=== PATIENT | female | born 1995 | race Two or more races ===

== ENCOUNTER 2022-08-07 17:35 | Observation (INO) | payer MEDICAID, OTHER ==
[2022-08-07 19:45] LABS: Basophils # (auto) 0 10 ^3/uL (0-0.2); Basophils % (auto) 0.3 % (0.0-2.0); Eosinophils # (auto) 0 10 ^3/uL (0-0.8); Eosinophils % (auto) 0.3 % (0.0-7.0); Hematocrit 37.7 % (36.0-46.0); Hemoglobin 13.1 g/dL (12.2-16.2); Lymphocytes # (auto) 2.7 10 ^3/uL (0.4-5.4); Mean Corpuscular Hemoglobin 31.9 pg (28.0-32.0); Mean Corpuscular Hgb Conc. 34.6 g/dL (32.0-36.0); Mean Corpuscular Volume 92.3 fL (80.0-100.0); Monocytes # (auto) 0.7 10 ^3/uL (0-1.3); Monocytes % (auto) 7.8 % (0.0-12.0); Neutrophils # (auto) 5.3 10 ^3/uL (1.6-8.6); Neutrophils % (auto) 60.6 % (37.0-80.0); Nucleated Red Blood Cells % 0.1 %; Red Blood Cells 4.09 10^6/uL (4.0-5.20); Red Cell Distribution Width 13.9 % (11.8-14.3); White Blood Cell 8.8 10^3/uL (4.4-10.8)
[2022-08-07] MEDS ORDERED: URSO300C9 PO (19:57)
[2022-08-07] MEDS ORDERED: PREN-94 PO (19:57)
[2022-08-07 19:58] LABS: Albumin 2.6 g/dL (3.4-5.0); BUN/Creatinine Ratio 14.5 (10.0-20.0); Calcium 8.9 mg/dL (8.5-10.1); Potassium 3.6 mmol/L (3.5-5.1)
[2022-08-07 20:00] LABS: Bilirubin, Total 0.6 mg/dL (0.2-1.0); Total Protein 6.3 g/dL (6.4-8.2)
== END 2022-08-07 20:40 | disposition home or self-care (01) ==
LOC: LDRP 17:35
PROVIDERS: ADMIT Obstetrics & Gynecology; ATTEND Obstetrics & Gynecology
DX: O99.891 Other specified diseases and conditions complicating pregnancy (principal); N13.30 Unspecified hydronephrosis; O26.893 Other specified pregnancy related conditions, third trimester; L29.9 Pruritus, unspecified; Z3A.34 34 weeks gestation of pregnancy; Z88.0 Allergy status to penicillin
CPT/HCPCS: 36415; 59025; 76818; 80053; 81002; 85025; 94760; G0378

== ENCOUNTER 2022-08-09 08:46 | Observation (INO) | payer MEDICAID ==
[~2022-08-09 08:46] MED LIST: PREN-94 PO; URSO300C9 PO
== END 2022-08-09 10:35 | disposition home or self-care (01) ==
LOC: LDRP 08:46 → UNDOADMOB 08:46 → LDRP 08:48 → UNDODISOB 10:35
PROVIDERS: ADMIT Obstetrics & Gynecology; ATTEND Obstetrics & Gynecology
DX: O26.613 Liver and biliary tract disorders in pregnancy, third trimester (principal); O26.62 Liver and biliary tract disorders in childbirth; K83.1 Obstruction of bile duct; O99.891 Other specified diseases and conditions complicating pregnancy; N13.30 Unspecified hydronephrosis; O26.893 Other specified pregnancy related conditions, third trimester; R42 Dizziness and giddiness; Z3A.34 34 weeks gestation of pregnancy
CPT/HCPCS: 59025; 76818; 81002; 94760; G0378; 59409

== ENCOUNTER 2022-08-12 10:07 | Observation (INO) | payer BC, MEDICAID ==
[2022-08-16] MEDS ORDERED: PREN-96 PO (08:34)
== END 2022-08-16 10:10 | disposition home or self-care (01) ==
LOC: UNDOADMOB 08-16 08:06 → LDRP 08-16 08:06 → UNDODISOB 08-16 10:10
PROVIDERS: ADMIT Obstetrics & Gynecology; ATTEND Obstetrics & Gynecology
DX: O26.613 Liver and biliary tract disorders in pregnancy, third trimester (principal); K83.1 Obstruction of bile duct; O99.891 Other specified diseases and conditions complicating pregnancy; N13.30 Unspecified hydronephrosis; O62.9 Abnormality of forces of labor, unspecified; Z3A.36 36 weeks gestation of pregnancy
CPT/HCPCS: 59025; 76818; 81002; 94760; G0378

== ENCOUNTER 2022-08-23 08:00 | Observation (INO) | payer MEDICAID ==
[~2022-08-23 08:00] MED LIST changes: +PREN-96 PO
== END 2022-08-23 10:06 | disposition home or self-care (01) ==
LOC: LDRP 08:00 → UNDOADMOB 08:00 → LDRP 08:12 → UNDODISOB 10:06
PROVIDERS: ADMIT Obstetrics & Gynecology; ATTEND Obstetrics & Gynecology
DX: O26.613 Liver and biliary tract disorders in pregnancy, third trimester (principal); K83.1 Obstruction of bile duct; Z3A.37 37 weeks gestation of pregnancy; Z88.0 Allergy status to penicillin
CPT/HCPCS: 59025; 76818; 81002; G0378

== ENCOUNTER 2022-08-27 10:02 | Observation (INO) | payer MEDICAID ==
[~2022-08-27] VITALS: Ht 160 cm; Wt 90.7 kg
== END 2022-08-27 11:38 | disposition home or self-care (01) ==
LOC: UNDOADMOB 10:02 → LDRP 10:02 → UNDODISOB 11:38
PROVIDERS: ADMIT Obstetrics & Gynecology; ATTEND Obstetrics & Gynecology
DX: O26.613 Liver and biliary tract disorders in pregnancy, third trimester (principal); K83.1 Obstruction of bile duct; Z3A.37 37 weeks gestation of pregnancy
CPT/HCPCS: 59025; 76818; 81002; 94760; G0378

== ENCOUNTER 2022-08-31 08:15 | Inpatient (IN) | payer MEDICAID ==
[~2022-08-31] VITALS: Ht 160 cm; Wt 91.2 kg
[2022-08-31] MEDS ORDERED: LIDOCAINE 2%HCL (LOCAL ANESTH.) INJ 20ML MDV IJ PRN (08:45)
[2022-08-31] MEDS ORDERED: PHISODERM TOP SOLN 240ML BTL TOP PRN (08:45)
[2022-08-31] MEDS: LACTATED RINGER'S 1,000 ML IV SCH ×2 (09:31→16:36)
[2022-08-31] MEDS: miSOPROStol 50 MCG per PRE-CUT 1/2 TAB PO PRN ×3 (09:44→23:15)
[2022-08-31 10:25] LABS: Basophils # (auto) 0 10 ^3/uL (0-0.2); Basophils % (auto) 0.3 % (0.0-2.0); Eosinophils # (auto) 0 10 ^3/uL (0-0.8); Eosinophils % (auto) 0.2 % (0.0-7.0); Hematocrit 36.6 % (36.0-46.0); Hemoglobin 12.6 g/dL (12.2-16.2); Lymphocytes # (auto) 1.7 10 ^3/uL (0.4-5.4); Lymphocytes % (auto) 22.1 % (10.0-50.0); Mean Corpuscular Hemoglobin 32.3 pg (28.0-32.0); Mean Corpuscular Hgb Conc. 34.5 g/dL (32.0-36.0); Mean Corpuscular Volume 93.4 fL (80.0-100.0); Monocytes # (auto) 0.5 10 ^3/uL (0-1.3); Monocytes % (auto) 7.2 % (0.0-12.0); Neutrophils # (auto) 5.3 10 ^3/uL (1.6-8.6); Neutrophils % (auto) 70.2 % (37.0-80.0); Nucleated Red Blood Cells % 0.2 %; Red Blood Cells 3.91 10^6/uL (4.0-5.20); Red Cell Distribution Width 15.1 % (11.8-14.3); White Blood Cell 7.5 10^3/uL (4.4-10.8)
[2022-08-31 10:26] LABS: Urine Bacteria MANY /hpf (None Seen); Urine Blood Negative /uL (Negative); Urine Mucus FEW (None Seen); Urine Specific Gravity 1.015 (1.001-1.035); Urine WBC 5 /hpf (0 - 5)
[2022-08-31 10:31] LABS: Albumin 2.6 g/dL (3.4-5.0); Calcium 8.7 mg/dL (8.5-10.1); Potassium 3.6 mmol/L (3.5-5.1)
[2022-08-31 10:33] LABS: Alcohol, Urine < 3.0 mg/dL (0-10); Amphetamine Screen, Urine NEGATIVE (NEGATIVE); Barbiturate Scree,Urine NEGATIVE (NEGATIVE); Benzodiazephine Screen, Urine NEGATIVE (NEGATIVE); Cannabinoid Screen, Urine NEGATIVE (NEGATIVE); Cocaine Screen, Urine NEGATIVE (NEGATIVE); Opiate Scree,Urine NEGATIVE (NEGATIVE); Phencyclidine Screen, Urine NEGATIVE (NEGATIVE)
[2022-08-31 10:34] LABS: BUN/Creatinine Ratio 15.4 (10.0-20.0); Bilirubin, Total 0.6 mg/dL (0.2-1.0)
[2022-08-31 11:11] LABS: INR 0.87 (0.9-1.15); Partial Thromboplastin Time 25.9 sec (24.6-33.4)
[2022-08-31] MEDS: PROMETHAZINE HCL 25 MG/ML 1ML IV PRN (20:26)
[2022-08-31] MEDS: BUTORPHANOL TARTRATE 2 MG/1 ML VIAL IV PRN (20:27)
[2022-09-01] MEDS: LACTATED RINGER'S 1,000 ML IV SCH ×4 (00:05→23:17)
[2022-09-01] MEDS: PROMETHAZINE HCL 25 MG/ML 1ML IV PRN ×3 (00:58→18:30)
[2022-09-01] MEDS: BUTORPHANOL TARTRATE 2 MG/1 ML VIAL IV PRN ×2 (00:59→05:34)
[2022-09-01] MEDS: miSOPROStol 50 MCG per PRE-CUT 1/2 TAB PO PRN ×2 (04:05→07:58)
[2022-09-01] MEDS ORDERED: LACT. RINGERS/OXYTOCIN 20UNITS 500 ML IV ONE ×2 (06:45→07:15)
[2022-09-01] MEDS ORDERED: METHYLERGONOVINE MALEATE 0.2 MG/ML AMP IM ONE (06:45)
[2022-09-01 07:06] LABS: RPR Non Reactive (Non Reactive)
[2022-09-01] MEDS ORDERED: LIDOCAINE HCL 2 %PF INJ 10ML AMP IJ ONE (09:00)
[2022-09-01] MEDS ORDERED: NALOXONE HCL 0.4 MG/ML VIAL IV ONE ×2 (09:00→11:15)
[2022-09-01] MEDS ORDERED: ePHEDrine SULFATE 50 MG/ML AMP IV ONE ×2 (09:00→11:15)
[2022-09-01] MEDS ORDERED: fentaNYL CITRATE 100 MCG/2 ML VL IV ONE (09:00)
[2022-09-01] MEDS ORDERED: ROPIVACAINE HCL 200 ML EPI SCH ×2 (09:00→11:15)
[2022-09-01] MEDS ORDERED: SODIUM CHLORIDE 0.9% 500 ML IV PRN (11:15)
[2022-09-01] MEDS ORDERED: LACTATED RINGER'S 500 ML IV ONE (11:15)
[2022-09-01] MEDS ORDERED: LACT. RINGERS/OXYTOCIN 20UNITS 1,000 ML IV SCH (11:45)
[2022-09-01] MEDS ORDERED: TERBUTALINE SULFATE 1 MG/ML 1ML VIAL SC PRN (11:45)
[2022-09-01] MEDS ORDERED: METHYLERGONOVINE MALEATE 0.2 MG/ML AMP IM PRN (18:15)
[2022-09-01] MEDS ORDERED: CARBOPROST TROMETHAMINE 250 MCG/1ML VIAL IM PRN (18:15)
[2022-09-01] MEDS ORDERED: miSOPROStol 100 mcg TAB SL PRN ×2 (18:15→18:30)
[2022-09-01] MEDS: DERMOPLAST 60ML BOTTLE TOP PRN (18:23)
[2022-09-01] MEDS: WITCH HAZEL-GLYCERIN PAD TOP PRN (18:23)
[2022-09-01] MEDS ORDERED: ACETAMINOPHEN 325 MG TAB PO PRN (20:45)
[2022-09-01] MEDS: ceFAZolin 1GM/50ML 50 ML IV SCH ×2 (22:02→22:33)
[2022-09-01] MEDS ORDERED: ceFAZolin 1GM/50ML 50 ML IV ONE (22:15)
[2022-09-02] MEDS ORDERED: miSOPROStol 100 mcg TAB PR PRN (01:00)
[2022-09-02 01:19] LABS: Basophils # (auto) 0.1 10 ^3/uL (0-0.2); Basophils % (auto) 0.5 % (0.0-2.0); Eosinophils # (auto) 0.2 10 ^3/uL (0-0.8); Eosinophils % (auto) 1.2 % (0.0-7.0); Hematocrit 39.5 % (36.0-46.0); Hemoglobin 12.9 g/dL (12.2-16.2); Lymphocytes # (auto) 1.4 10 ^3/uL (0.4-5.4); Lymphocytes % (auto) 7.4 % (10.0-50.0); Mean Corpuscular Hemoglobin 31.7 pg (28.0-32.0); Mean Corpuscular Hgb Conc. 32.8 g/dL (32.0-36.0); Mean Corpuscular Volume 96.8 fL (80.0-100.0); Monocytes # (auto) 1.6 10 ^3/uL (0-1.3); Monocytes % (auto) 8.1 % (0.0-12.0); Neutrophils # (auto) 15.9 10 ^3/uL (1.6-8.6); Neutrophils % (auto) 82.8 % (37.0-80.0); Nucleated Red Blood Cells % 0.1 %; Red Blood Cells 4.08 10^6/uL (4.0-5.20); Red Cell Distribution Width 15.7 % (11.8-14.3); White Blood Cell 19.2 10^3/uL (4.4-10.8)
[2022-09-02 01:33] LABS: INR 0.91 (0.9-1.15); Partial Thromboplastin Time 22.2 sec (24.6-33.4)
[2022-09-02] MEDS ORDERED: ONDANSETRON ODT 4 MG TAB PO PRN (01:45)
[2022-09-02] MEDS: IBUPROFEN 600 MG TAB PO PRN ×3 (01:47→15:32)
[2022-09-02 01:51] LABS: Albumin 2.2 g/dL (3.4-5.0); BUN/Creatinine Ratio 8.5 (10.0-20.0); Calcium 8.9 mg/dL (8.5-10.1)
[2022-09-02 01:54] LABS: Bilirubin, Total 1.8 mg/dL (0.2-1.0); Total Protein 5.6 g/dL (6.4-8.2)
[2022-09-02 02:06] LABS: Uric Acid 5.5 mg/dL (2.6-6.0)
[2022-09-02] MEDS: LACTATED RINGER'S 1,000 ML IV SCH ×2 (04:17→16:45)
[2022-09-02] MEDS: ACETAMINOPHEN 325 MG TAB PO PRN ×3 (04:34→20:38)
[2022-09-02] MEDS: ceFAZolin 1GM/50ML 50 ML IV SCH ×2 (06:24→14:27)
[2022-09-02 07:00] VITALS: BP 136/59
[2022-09-02] MEDS: DOCUSATE CALCIUM 240 MG CAP PO SCH (10:41)
[2022-09-02 11:20] VITALS: BP 96/54
[2022-09-02 11:23] LABS: Protein, Urine 37.2 mg/dL (0.0-11.9)
[2022-09-02] MEDS: HYDROcodone-ACET 5/325MG TAB PO PRN (17:00)
[2022-09-02 18:56] VITALS: BP 102/61
[2022-09-02] MEDS ORDERED: DOCUSATE SOD 100 MG CAP PO SCH (22:00)
[2022-09-02 22:47] VITALS: BP 104/56
[2022-09-03] MEDS: HYDROcodone-ACET 5/325MG TAB PO PRN ×2 (00:56→11:14)
[2022-09-03 03:15] VITALS: BP 95/44
[2022-09-03 03:30] VITALS: BP 111/62
[2022-09-03] MEDS: IBUPROFEN 600 MG TAB PO PRN (04:57)
[2022-09-03 06:15] LABS: Protein, Urine 19.6 mg/dL (0.0-11.9)
[2022-09-03 07:15] VITALS: BP 97/57
[2022-09-03 11:00] VITALS: BP 97/50
[2022-09-03] MEDS: DOCUSATE CALCIUM 240 MG CAP PO SCH (11:14)
[2022-09-03] MEDS: WITCH HAZEL-GLYCERIN PAD TOP PRN (11:29)
[2022-09-03] MEDS: DERMOPLAST 60ML BOTTLE TOP PRN (11:29)
== END 2022-09-03 13:20 | disposition home or self-care (01) | DRG 560 ==
LOC: LDRP 08:15
PROVIDERS: ADMIT Obstetrics & Gynecology; ATTEND Obstetrics & Gynecology
PROC: 10D07Z6 Extraction of Products of Conception, Vacuum, Via Natural or Artificial Opening (ICD-10-PCS; principal; 2022-09-02)
PROC: 3E0DXGC Introduction of Other Therapeutic Substance into Mouth and Pharynx, External Approach (ICD-10-PCS; 2022-09-02)
PROC: 0KQM0ZZ Repair Perineum Muscle, Open Approach (ICD-10-PCS; 2022-09-02)
PROC: 0W8NXZZ Division of Female Perineum, External Approach (ICD-10-PCS; 2022-09-02)
PROC: 3E0R3BZ Introduction of Anesthetic Agent into Spinal Canal, Percutaneous Approach (ICD-10-PCS; 2022-09-02)
PROC: 00HU33Z Insertion of Infusion Device into Spinal Canal, Percutaneous Approach (ICD-10-PCS; 2022-09-02)
DX: O26.62 Liver and biliary tract disorders in childbirth (principal); Z37.0 Single live birth; K83.1 Obstruction of bile duct; Z3A.38 38 weeks gestation of pregnancy; O70.1 Second degree perineal laceration during delivery
CPT/HCPCS: 36415; 59025; 59409; 62282; 80053; 80307; 81001; 81002; 82570; 84156; 84550; 85025; 85610; 85730; 86592; 86850; 86900; 86901; 94760; 94762; 96361; 96365; 96366; 96372; 96374; 96375; G0378; J0690; J2590